=== PATIENT | female | born 1995 | race Two or more races ===

== ENCOUNTER 2021-08-03 00:51 | Emergency (ER) | payer OTHER ==
[~2021-08-03] VITALS: Ht 167.6 cm; Wt 84.4 kg
== END 2021-08-03 04:40 | disposition home or self-care (01) ==
LOC: ER 00:51
DX: O20.9 Hemorrhage in early pregnancy, unspecified (principal); Z3A.15 15 weeks gestation of pregnancy; I10 Essential (primary) hypertension

== ENCOUNTER 2021-12-14 19:22 | Inpatient (IN) | payer OTHER ==
[~2021-12-14] VITALS: Ht 167.6 cm; Wt 1.8 kg
[2021-12-14] MEDS ORDERED: LABETALOL 11 MG/1 ML PO (19:53)
[2021-12-14] MEDS ORDERED: PRENATAL CAPLE1 EAC1 PO (19:54)
[2021-12-14] MEDS ORDERED: CHILDREN'S ASPI81 MG PO (19:54)
== END 2021-12-27 16:56 | disposition home or self-care (01) | DRG 788 ==
LOC: OBS/DEL 19:22 → LDR 12-15 16:07 → OB/GYN 12-18 15:49 → LDR 12-20 13:37 → OB/GYN 12-24 15:49
PROVIDERS: ADMIT Obstetrics & Gynecology Obstetrics; ATTEND Obstetrics & Gynecology Obstetrics
PROC: 4A1HXCZ Monitoring of Products of Conception, Cardiac Rate, External Approach (ICD-10-PCS; 2021-12-15)
PROC: BY4FZZZ Ultrasonography of Third Trimester, Single Fetus (ICD-10-PCS; 2021-12-15)
PROC: BY4FZZZ Ultrasonography of Third Trimester, Single Fetus (ICD-10-PCS; 2021-12-23)
PROC: 10D00Z1 Extraction of Products of Conception, Low, Open Approach (ICD-10-PCS; principal; 2021-12-24 13:30)
DX: O60.14X0 Preterm labor third trimester with preterm delivery third trimester, not applicable or unspecified (principal); O26.843 Uterine size-date discrepancy, third trimester; O36.5930 Maternal care for other known or suspected poor fetal growth, third trimester, not applicable or unspecified; O36.8130 Decreased fetal movements, third trimester, not applicable or unspecified; Z3A.35 35 weeks gestation of pregnancy; Z37.0 Single live birth; Z20.822 Contact with and (suspected) exposure to COVID-19

== ENCOUNTER 2022-01-01 20:39 | Emergency (ER) | payer OTHER ==
[~2022-01-01] VITALS: Ht 167.6 cm; Wt 94.8 kg
[~2022-01-01 20:39] MED LIST: CHILDREN'S ASPI81 MG PO; LABETALOL 11 MG/1 ML PO; PRENATAL CAPLE1 EAC1 PO
[2022-01-02] MEDS ORDERED: ACETAMINOPHEN650 M2 PO (01:27)
[2022-01-02] MEDS ORDERED: CETIRIZINE HCL5 MG PO (01:27)
[2022-01-02] MEDS ORDERED: MOLNUPIRAVIR (200 MG PO (01:27)
[2022-01-02] MEDS ORDERED: LEVALBUTER0.63 MG/3 IH (01:27)
[2022-01-02] MEDS ORDERED: AZITHROMYCIN500 MG PO (01:27)
[2022-01-02] MEDS ORDERED: MUCINEX DM ER1 EACH PO (01:27)
[2022-01-02] MEDS ORDERED: WAL-TUSSIN15 MG/5 ML PO (01:46)
== END 2022-01-02 01:58 | disposition home or self-care (01) ==
LOC: ER 20:39
DX: U07.1 COVID-19 (principal); A49.3 Mycoplasma infection, unspecified site; R50.9 Fever, unspecified; R09.81 Nasal congestion; O16.5 Unspecified maternal hypertension, complicating the puerperium